=== PATIENT | male | born 1990 | race African-American/Black ===

== ENCOUNTER 2016-08-27 22:33 | Emergency (ER) | payer OTHER ==
[2016-08-28] MEDS ORDERED: LIDOCAINE 0.5%/EPINEPHRINE INJ 50 ML VIAL INJ ONE (02:21)
[2016-08-28] MEDS ORDERED: DEXTROSE 50%-WATER 25 GM/50 ML DISP.SYRIN IV ONE (02:22)
--- NOTE | 2016-08-28 02:32 | ER Document Report ---
ED Fall - General Chief Complaint: Head Injury Stated Complaint: FALL/HEAD INJURY Time Seen by Provider: 08/28/16 01:30 Mode of Arrival: Ambulatory Information source: Patient Notes: Patient is visiting from out of town he tripped and hit his head off of the peer. He denies a loss of consciousness or headache. He said it initially bled quite a bit but then stopped on its own. He denies any recent seizure activity headache blurred vision double vision neck pain chest pain or shortness of breath. Patient denies being on blood thinners. TRAVEL OUTSIDE OF THE [place] IN LAST 30 DAYS: No - HPI Occurred: This evening Where: Outdoors Associated symptoms: denies: Lost consciousness, Dazed/confused, Seizure, Difficulty walking Past Medical History - General Information source: Patient - Social History Smoking Status: Never Smoker Chew tobacco use (# tins/day): No Frequency of alcohol use: None Drug Abuse: None Family History: Reviewed & Not Pertinent Patient has suicidal ideation: No Patient has homicidal ideation: No Renal/ Medical History: Denies: Hx Peritoneal Dialysis Surgical Hx: Negative - Immunizations Hx Diphtheria, Pertussis, Tetanus Vaccination: Yes Review of Systems - Review of Systems Constitutional: No symptoms reported EENT: No symptoms reported Cardiovascular: No symptoms reported Respiratory: No symptoms reported Musculoskeletal: No symptoms reported - Head laceration Neurological/Psychological: No symptoms reported Physical Exam - Vital signs Vitals: Temp Pulse Resp BP Pulse Ox 97.5 F 74 19 129/85 H 100 08/27/16 23:14 08/27/16 23:14 08/27/16 23:14 08/27/16 23:14 08/27/16 23:14 - General General appearance: Appears well, Alert - HEENT Head: Normocephalic - Patient with 2.0 cm laceration to the right parietal scalp with bleeding well controlled. No associated hematoma step-off or deformity. No hemotympanum midface is stable teeth are intact trachea is midline neck is supple no midline cervical tenderness no acute chest back or extremity trauma - Extremities General upper extremity: Normal inspection, Nontender, Normal color, Normal ROM , Normal temperature General lower extremity: Normal inspection, Nontender, Normal color, Normal ROM , Normal temperature, Normal weight bearing. No: Ramez's sign - Neurological Neuro grossly intact: Yes Cognition: Normal Orientation: AAOx4 Isela Coma Scale Eye Opening: Spontaneous [place] Coma Scale Verbal: Oriented [place] Coma Scale Motor: Obeys Commands [place] Coma Scale Total: 15 Speech: Normal Motor strength normal: LUE, RUE, LLE, RLE Sensory: Normal Course - Re-evaluation Re-evalutation: 08/28/16 02:31 tripped and hit head off pier. 2.0 cm laceration top head stapled - Vital Signs Vital signs: Temp Pulse Resp BP Pulse Ox 97.4 F 64 18 118/67 98 08/28/16 02:57 08/28/16 02:57 08/28/16 02:57 08/28/16 02:57 08/28/16 02:57 Procedures - Laceration/Wound Repair Head Wound length (cm): 2.0 Wound's Depth, Shape: Linear Laceration pre-procedure: Chloraprep applied, Sterile drapes applied Anesthetic type: 1% Lidocaine Wound explored: Clean, No foreign body removed Wound Repaired With: Garry Number of Sutures: 7 Layer Closure?: No Post-procedure NV exam normal: Yes Complications: No Discharge - Discharge Clinical Impression: Minor head injury, 2.0 cm scalp laceration with repair Condition: Stable Disposition: HOME, SELF-CARE Additional Instructions: Laceration Care Your laceration has been sutured to keep the skin edges aligned during healing. The time of suture removal depends on the nature and location of your cut. Please follow the care instructions the doctor has outlined for you and return for further care, according to the schedule you've been given. Keep the wound and dressing clean. Unless you were told otherwise, you may shower daily, blotting the wound dry with a clean, unused towel. At other times, If the dressing gets wet or blood soaked, remove it and blot the wound dry, then reapply a new dressing. Unless you were instructed otherwise, dressings should be changed at least daily. If any signs of infection occur (swelling, redness, increasing tenderness, red streaks, tender lumps in the armpit or groin above the laceration, or fever) , see the doctor immediately. Follow-up with your doctor in [place] in 3-5 days for recheck reevaluation in 7 -10 days for removal of garry return for increasing worsening or new symptoms
[2016-08-28] MEDS ORDERED: LIDOCAINE 1% INJ-PF (10 MG/ML) 30 ML SDV ONE (02:38)
[2016-08-28 02:58] VITALS: BP 118/67
[2016-08-28] MEDS ORDERED: LORAZEPAM 1 MG TABLET PO PRN (18:55)
== END 2016-08-28 02:57 | disposition home or self-care (01) ==
LOC: ER 22:33
PROC: 0HQ0XZZ Repair Scalp Skin, External Approach (ICD-10-PCS; principal; 2016-08-27)
DX: S01.01XA Laceration without foreign body of scalp, initial encounter (principal); W01.198A Fall on same level from slipping, tripping and stumbling with subsequent striking against other object, initial encounter; Y92.832 Beach as the place of occurrence of the external cause
CPT/HCPCS: 99283